=== PATIENT | male | born 1995 | race African-American/Black ===

== ENCOUNTER 2019-09-23 02:12 | Emergency (ER) | payer OTHER ==
[~2019-09-23] VITALS: Ht 180.3 cm; Wt 68.0 kg
[2019-09-23 02:22] VITALS: BP 133/74
--- NOTE | 2019-09-23 03:00 | NUR ---
DR MIRZA IS AT THE BEDSIDE SPEAKING TO THE PT RE: XRAY FINDINGS.
== END 2019-09-23 03:28 | disposition home or self-care (01) ==
LOC: ER 02:13
DX: R05 Cough (principal); F17.200 Nicotine dependence, unspecified, uncomplicated
CPT/HCPCS: 71045-TC